=== PATIENT | male | born 1990 | race Caucasian/White ===

== ENCOUNTER 2021-03-28 14:53 | Outpatient (CLI) | payer OTHER | END 2021-03-28 14:54 | disposition home or self-care (01) | LOC: SCSMRI 14:53 | PROVIDERS: ATTEND Orthopaedic Surgery | DX: M23.92 Unspecified internal derangement of left knee (principal); M17.12 Unilateral primary osteoarthritis, left knee; Z98.890 Other specified postprocedural states ==